=== PATIENT | female | born 2000 | race Two or more races ===

== ENCOUNTER 2023-04-19 18:43 | Inpatient (IN) | payer OTHER ==
[~2023-04-19] VITALS: Ht 157.5 cm; Wt 72.6 kg
== END 2023-04-20 13:43 | disposition home or self-care (01) | DRG 833 ==
LOC: LDR 18:43
PROVIDERS: ADMIT Obstetrics & Gynecology; ATTEND Obstetrics & Gynecology
PROC: 4A1HXCZ Monitoring of Products of Conception, Cardiac Rate, External Approach (ICD-10-PCS; principal; 2023-04-19)
PROC: B030ZZZ Magnetic Resonance Imaging (MRI) of Brain (ICD-10-PCS; 2023-04-19)
PROC: BY4FZZZ Ultrasonography of Third Trimester, Single Fetus (ICD-10-PCS; 2023-04-20)
DX: O26.893 Other specified pregnancy related conditions, third trimester (principal); R55 Syncope and collapse; O35.3XX0 Maternal care for (suspected) damage to fetus from viral disease in mother, not applicable or unspecified; O36.8130 Decreased fetal movements, third trimester, not applicable or unspecified; Z20.822 Contact with and (suspected) exposure to COVID-19; Z3A.33 33 weeks gestation of pregnancy
CPT/HCPCS: 70544